=== PATIENT | female | born 1995 | race Caucasian/White ===

== ENCOUNTER 2017-08-24 22:06 | Emergency (ER) | payer MEDICAID, SELFPAY ==
[2017-08-24 22:07] VITALS: BP 131/85; PULSE 65; PULSE 80; RESP 16; TEMP 36.7; O2SAT 97; O2SAT 98; BMI 24.3
--- NOTE | 2017-08-24 22:37 | ED.DCSUM_ITS ---
- ER Visit Summary Date of Service: 08/24/17 Chief Complaint: Abdominal cramps History of Present Illness: The patient is a 22 F with abdominal cramps that started about 20 minutes prior to arrival. These were in her lower abdomen and radiated through to the back. By the time I saw her, they have almost resolved. She said she never had these before. She is not sure what brought them on, but she is finishing her menstrual period and was passing some clots. She denies any discharge or lesions. Denies any trouble urinating or change in bowel movements. Denies fever or systemic symptoms. Patient told the nurse that she is having problems with constipation. Physical Examination: Patient is afebrile and vital signs are unremarkable. She is sitting comfortably and appears in no acute distress. Skin appears normal. Abdomen soft, nontender, nondistended. Back is nontender. No CVA tenderness. Test Results: Urinalysis and test pending Emergency Department Course and Treatment: Patient had a brief episode of severe cramping. Her exam is unremarkable. Her symptoms have resolved. This may be related to menstrual bleeding. I will check a urinalysis and test. No indication for imaging or further diagnostic studies at this time. Patient was treated with Motrin while awaiting results. Urinalysis and test unremarkable. Patient will be treated with Motrin and MiraLAX. Follow-up with primary care. Discharge. Treatment Plan: As above Disposition: Discharged Impression: 1. Abdominal cramps This note was generated with [employer] dictation software. It may contain incorrect words, spelling, and punctuation that were not noted in review of the chart prior to signing ED Disposition - Plan for ED Patient: Chief Complaint: Abd Pain Referrals: Care Physician,No Primary [Primary Care Provider] -
[2017-08-24] MEDS: Ibuprofen 600 MG Tablet PO (22:41)
[2017-08-24 22:58] LABS: Bacteria 0 SEEN /hpf (None Seen); Mucous, Urine 0 SEEN /hpf (<or=2+); Red Blood Cells-Urine 0 SEEN /hpf (0-5); White Blood Cells 0 SEEN /hpf (0-5)
[2017-08-24 23:01] LABS: Color, Urine Yellow (Yellow); Glucose, Dipstick Normal (Normal); Ketone-Dipstick Negative (Negative); Leukocyte Esterase-Dipstick Negative /ul (Negative); Nitrite-Dipstick Negative (Negative); Occult Blood-Urine Negative /ul (Negative); Protein-Dipstick Negative (Negative); Specific Gravity, Urine 1.015 (1.002-1.030); Urine Bilirubin Dipstick Negative (Negative); Urine Clarity Sl. Cloudy (Clear); Urine Urobilinogen Normal (Normal); Urine pH 6.5 (5.0 - 8.0)
[2017-08-24 23:04] LABS: Internal QC Validated? YES +Cl - CLEAR BKGD; Pregnancy, Urine Negative Negative
[2017-08-24 23:13] LABS: Squamous Epithelial Cells - UA 0-5 SEEN /hpf (5-10)
--- NOTE | 2017-08-24 23:23 | ED.DEP ---
ED Disposition - Plan for ED Patient: Chief Complaint: Abd Pain Instructions: ED Abdominal Pain Unkn Cause Prescriptions: Polyethylene Glycol 3350 [Miralax] 17 gm PO DAILY 30 Days #30 packet Ibuprofen [Motrin] 800 mg PO TID #20 tab Referrals: Roni Carmona DO [NON-STAFF] -
[2017-08-24 23:35] VITALS: PULSE 71; RESP 16; O2SAT 98
== END 2017-08-24 23:36 | disposition home or self-care (01) ==
LOC: ED 22:58
PROVIDERS: Emergency Provider Emergency Medicine
DX: R10.30 Lower abdominal pain, unspecified (principal); Z72.0 Tobacco use
CPT/HCPCS: 81001; 81025; 99282; J7030

== ENCOUNTER 2017-12-23 18:03 | Observation (INO) | payer MEDICAID, SELFPAY ==
[2017-12-23 18:04] VITALS: BP 112/64; PULSE 72; RESP 17; TEMP 36.6; O2SAT 100; BMI 22.3
--- NOTE | 2017-12-23 18:47 | ED.VISSUMM ---
- ER Visit Summary Date of Service: 12/23/17 Chief Complaint: [] Intermittent upper abdominal pain since morning history of same History of Present Illness: The patient is a 22 F [] past history of complains of intermittent upper abdominal pain that she has had since this morning is intermittent causes cramps resolve spontaneously she has been able to eat and drink normal bowel bladder habits denies . She has had these spells in the past she has been told it possibly is her gallbladder but she has not followed up, she denies any fever cough alcohol use no tainted foods no antibiotics no exposures Physical Examination: [] Counseling the bed she is interacting and laughing with boyfriend in no distress HEENT exams unremarkable the neck is supple the lungs are clear the heart tones are normal abdomen soft there is no tenderness rebound guarding organomegaly she indicates the pain is in the by subcostal regions right and left there is no pain below her abdomen in fact I palpate her abdomen right now there is no pain of any kind but that is the location of the pain when it occurs the backs unremarkable upper lower extremities unremarkable neurologic she is awake moving all 4 skin is unremarkable extremities unremarkable she denies Patient's lab returned with elevated lipase in 1899 slight elevation of liver enzymes white count 14,000 explained her the concept of cholangitis pancreatitis potential lethal nature of these condition she indicated she understood she was able to verbally read back to me my concerns and also the diagnoses but stated she had issues with childcare and she could not stay in the emergency department a longer and she wanted to go home to take care of her children she agreed to return if symptoms change or intensified and/or follow-up with her physicians on Monday she is awake alert clearly cope coherent and competent to make this decision boyfriend was in the room and stated it was her decision to make I then went back again counseled her about all the above and she agreed to do the ultrasound but did not wish to have the IV restarted this point time The preliminary reading on the ultrasound shows multiple small gallstones, bile duct within normal range no cholecystic fluid or signs of acute cholecystitis, no Crystal sign on ultrasound Again reestablish IV start IV antibiotics I spoke with the hospitalist discussed case them in detail given all the above they will admit the patient medically and consult surgery and pursue clinical management as warranted as above discussed with the patient explained the above to her she understands Test Results: [] Please note the spouse also noted and has a history of prior Percocet abuse and she has been intermittently using Suboxone for that condition Emergency Department Course and Treatment: [] Treatment Plan: [] Disposition: [] admit stable pending hospitalist evaluation Impression: [] Abdominal pain, pancreatitis, gallstones, possible gallstone pancreatitis 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 It may contain incorrect words, spelling, and punctuation that were not noted in review of the chart prior to signing ED Disposition - Plan for ED Patient: Chief Complaint: Abd Pain Referrals: Care Physician,No Primary [Primary Care Provider] -
[2017-12-23 18:55] LABS: Mucous, Urine 0 SEEN /hpf (<or=2+)
[2017-12-23] MEDS: 0.9% Normal Saline 1,000 ML 1000 ML IV (19:05)
[2017-12-23 19:30] LABS: Internal QC Validated? YES +Cl - CLEAR BKGD
[2017-12-23 19:31] LABS: Color, Urine Yellow (Yellow); Glucose, Dipstick Normal (Normal); Ketone-Dipstick Negative (Negative); Leukocyte Esterase-Dipstick Negative /ul (Negative); Nitrite-Dipstick Negative (Negative); Occult Blood-Urine Negative /ul (Negative); Protein-Dipstick Negative (Negative); Urine Bilirubin Dipstick Negative (Negative); Urine Clarity Sl. Cloudy (Clear); Urine Urobilinogen Normal (Normal); Urine pH 6.5 (5.0 - 8.0)
[2017-12-23 19:34] LABS: Absolute Lymphocyte Count 1.58 X10^3/ul (0.83-4.51); Absolute Neutrophil Count 11.5 X10^3/uL (2.0-7.7); Basophil# 0.02 X10^3/uL; Basophil% 0.1 % (0-1); Eosinophil# 0.18 X10^3/uL; Eosinophils% 1.3 % (0-5); Hematocrit 36.8 % (37-47); Hemoglobin 12.6 g/dl (12.0-15.0); Lymphocyte # 1.58 X10^3/ul (4.0); Mean Corp Hgb Conc 34.2 g/gl (32-36); Mean Corpuscular Hgb 28.8 pg (27.0-32.0); Mean Corpuscular Volume 84.2 fL (81-99); Mean Platelet Vol. 10.2 fl (6.2-12.0); Monocyte# 1.04 X10^3/uL; Monocyte% 7.3 % (0-10); Neutrophil % 80.2 % (47-70); Platelet Count 287 K/mm3 (150-450); RBC Distribution Width CV 13.7 % (11.6-14.6); RBC Distribution Width SD 42.1 fl (35.1-43.9); Red Blood Count 4.37 M/mm3 (4.2-5.4); White Blood Count 14.3 K/mm3 (4.4-11.0)
[2017-12-23 19:36] LABS: POSITIVE COUNT NO; POSITIVE DIFFERENTIAL NO; POSITIVE MORPHOLOGY NO
[2017-12-23 19:37] LABS: Pregnancy, Urine Negative Negative
[2017-12-23 19:42] LABS: Bacteria RARE /hpf (None Seen); Squamous Epithelial Cells - UA 0-5 SEEN /hpf (5-10); White Blood Cells 0-5 SEEN /hpf (0-5)
[2017-12-23 19:44] LABS: Red Blood Cells-Urine 0-5 SEEN /hpf (0-5)
[2017-12-23 19:48] LABS: AST(SGOT) 155 U/L (15-37); Alanine Aminotransfer ALT/SGPT 134 U/L (13-56); Alkaline Phosphatase 153 U/L (45-117); Anion Gap 7 (5-15); BUN 9 mg/dL (7-18); BUN/Creat Ratio 15.7 RATIO (10-20); Bilirubin, Direct 0.47 mg/dL (0.00-0.30); Chloride 108 mmol/L (98-107); Creatinine, Serum 0.57 mg/dL (0.55-1.02); EST Glomerular Filtration Rate 137 mL/min (>60); Est Glom Filt Rate - Afr Amer 165 mL/min (>60); Estimated Creatinine Clearance 125.89 ml/min; Globulin 3.4 g/dL (2.2-4.2); Glucose 103 mg/dL (74-106); Lipase 1926 U/L (73-393); Potassium 3.4 mmol/L (3.5-5.1); Protein, Total 7.4 g/dL (6.4-8.2); Sodium Level 141 mmol/L (136-145)
--- NOTE | 2017-12-23 20:24 | US_ITS ---
STUDY: ABDOMINAL ULTRASOUND - RIGHT UPPER QUADRANT REASON FOR VISIT: Female, 22 years old. Mid abdominal pain. TECHNIQUE: Ultrasound evaluation of the right upper quadrant was performed with real-time and static crook-scale imaging. TECHNICAL QUALITY: Adequate. COMPARISON: None. FINDINGS: Liver: The liver measures 15.1 cm. There is normal echogenicity of the liver. The bile ducts are within normal limits. There is hepatic color flow. The direction of portal flow is hepatopetal. There is no demonstrated mass lesion. Gallbladder: Normal distended gallbladder. The gallbladder wall measures 3.1 mm. There is a negative sonographic Crystal's sign. There is no pericholecystic fluid. There are multiple small echogenic shadowing gallstones. A small suspected polyp. Common Bile Duct (C.B.D.): The common bile duct measures 4.8 mm. Pancreas: Normal size of the head, body and tail of the pancreas. Echogenic suggesting fatty atrophy. There is no demonstrated pancreatic mass or cyst. Right Kidney: Normal size of the right kidney. The right kidney measures 12.6 x 5.3 x 4.8 cm. Normal renal cortex. The right cortex measures 1.3 cm. There is no demonstrated renal mass or cyst. There is no right hydronephrosis. There is a 3 mm calculus of the superior pole calyx. US/Gallbladder IMPRESSION: 1. Cholelithiasis, borderline gallbladder wall thickening, but without pericholecystic fluid and with a negative sonographic Crystal sign. These features likely reflect chronic cholecystitis rather than acute but this requires further clinical correlation. 2. Nonobstructing calyceal calculus of the right kidney. Electronically Signed: Rod Mcelroy, at 23:28 EDT Tel , Service support ,
[2017-12-23] MEDS: Ondansetron ODT 4 MG Tablet PO (21:07)
[2017-12-23] MEDS: Ceftriaxone 1 GM/50 ML BAG IV (22:58)
[2017-12-23 23:00] VITALS: BP 122/79; PULSE 75; RESP 18; O2SAT 100
[2017-12-23 23:24] VITALS: BP 122/79; RESP 16; O2SAT 99
--- NOTE | 2017-12-23 23:27 | HP.PCM_ITS ---
Problem List (1) Drug abuse Status: Acute (2) Pancreatitis Status: Acute History of Present Illness Date of Admission: 12/23/17 Chief Complaint: Pancreatitis The patient is a 22 year old female w/ h/o gallstone and pain med abuse admitted for pancreatitis. She had intermittent upper abdominal pain that radiated to the back this morning. Pain was severe. Pain spontaneously resolved. However as the day went on, she noted pain did not improve but gotten progressively worse. Nothing improved or worsened the pain. Pain was not associated with food. Pain was not associated with any other symptoms. She developed nausea but no vomiting. She had similar pain before but it was years ago. Past Medical History Allergies No Known Allergies Allergy (Verified 12/23/17 18:04) Home Medications: Ambulatory Orders Medication Instructions Recorded Chrom Steven/Brindal Dsouza [Garcinia 1 each PO BID 12/23/17 Cambogia Tablet] Lives: With Family Smoking Status: Current every day smoker Alcohol: None Drugs: None - *Family History Maternal History Items: No pertinent history Review of Systems Constitutional: Denies: Chills, Fever, Weight Change HEENT: Denies: Head Aches, Sinus Congestion, Sinus Drainage Cardiovascular: Denies: Chest Pain, Palpitations Respiratory: Denies: Cough, Sputum production Gastrointestinal: Reports: Abdominal Pain, Nausea. Denies: Vomiting Genitourinary: Denies: Dysuria Musculoskeletal: Denies: Joint Pain, Joint Tenderness Skin: Denies: Rash, Wounds Neurological: Denies: Numbness, Tingling, Focal weakness Psychiatric: Denies: Anxiety, Depression, Homicidal Ideations, Suicidal Ideations Hematologic/ Lymphatic: Denies: Easy Bruising, Easy Bleeding VTE Information - Inpt Only VTE Present on Admission: No VTE Mechan Device Prophylaxis: SCD's VTE Pharm Prophylaxis ordered?: Yes Patient Problems: Active and Suspected Problems Drug abuse (Acute) Pancreatitis (Acute) - Physical Exam General: Alert, Oriented x3, Cooperative HEENT: Atraumatic, PERRLA, EOMI, Normocephalic Neck: Supple, No JVD, Negative Carotid Bruits Lungs: Clear to auscultation, Normal air movement Cardiovascular: Regular rate, No murmurs Abdomen: Bowel Sounds Present, Soft, Non Tender Extremities: No edema, Capillary Refill Less than 3 Seconds Skin: No rashes, No breakdown Musculoskeletal: No Tenderness to Palpation of Joints or Extremities Neurological: Cranial nerves II-XII grossly intact Psych/Mental Status: Normal Affect, Appropriate Vital Signs Temp Pulse Resp BP Pulse Ox 97.9 F 75 16 122/79 H 99 12/23/17 18:04 12/23/17 23:00 12/23/17 23:24 12/23/17 23:24 12/23/17 23:24 Oxygen Delivery Method Room Air Weight: 57.2 kg Body Mass Index (BMI) 22.3 Laboratory Tests Past 24 Hrs 12/23/17 12/23/17 12/23/17 18:44 18:44 19:05 WBC 14.3 H RBC 4.37 Hgb 12.6 Hct 36.8 L MCV 84.2 MCH 28.8 MCHC 34.2 RDW 13.7 RDW Differential 42.1 Plt Count 287 MPV 10.2 Immature Gran % (Auto) 0.100 Neut % (Auto) 80.2 H Lymph % (Auto) 11.0 L [place] % (Auto) 7.3 Eos % (Auto) 1.3 Baso % (Auto) 0.1 Absolute Neuts (auto) 11.5 H Absolute Lymphs (auto) 1.58 Total Counted Not Reportable Sodium Potassium Chloride Carbon Dioxide Anion Gap BUN Creatinine Estim Creat Clear Calc Est GFR (MDRD) Af Amer Est GFR (MDRD) Non-Af BUN/Creatinine Ratio Glucose Calcium Total Bilirubin Direct Bilirubin AST ALT Alkaline Phosphatase Total Protein Albumin Globulin Lipase Urine Color Yellow Urine Clarity Sl. Cloudy Urine pH 6.5 Ur Specific Frannie 1.010 Urine Protein Negative Urine Glucose (UA) Normal Urine Ketones Negative Urine Occult Blood Negative Urine Nitrite Negative Urine Bilirubin Negative Urine Urobilinogen Normal Ur Leukocyte Esterase Negative Urine RBC 0-5 SEEN Urine WBC 0-5 SEEN Ur Squamous Epith Cells 0-5 SEEN Urine Bacteria RARE Urine Mucus 0 SEEN Urine Test Negative 12/23/17 19:05 WBC RBC Hgb Hct MCV MCH MCHC RDW RDW Differential Plt Count MPV Immature Gran % (Auto) Neut % (Auto) Lymph % (Auto) [place] % (Auto) Eos % (Auto) Baso % (Auto) Absolute Neuts (auto) Absolute Lymphs (auto) Total Counted Sodium 141 Potassium 3.4 L Chloride 108 H Carbon Dioxide 26.0 Anion Gap 7 BUN 9 Creatinine 0.57 Estim Creat Clear Calc 125.89 Est GFR (MDRD) Af Amer 165 Est GFR (MDRD) Non-Af 137 BUN/Creatinine Ratio 15.7 Glucose 103 Calcium 9.0 Total Bilirubin 0.70 Direct Bilirubin 0.47 H AST 155 H ALT 134 H Alkaline Phosphatase 153 H Total Protein 7.4 Albumin 4.0 Globulin 3.4 Lipase 1926 H Urine Color Urine Clarity Urine pH Ur Specific Frannie Urine Protein Urine Glucose (UA) Urine Ketones Urine Occult Blood Urine Nitrite Urine Bilirubin Urine Urobilinogen Ur Leukocyte Esterase Urine RBC Urine WBC Ur Squamous Epith Cells Urine Bacteria Urine Mucus Urine Test Assessment/Plan All Active Problems Drug abuse (Acute) Pancreatitis (Acute) premature rupture of membranes (PPROM) delivered, current hospitalization (Acute) 22 year old female w/ h/o gallstone and pain med abuse admitted for pancreatitis. 1) Pancreatitis: Lipase 1900. Abdominal US disclosed multiple small gallstones, bile duct within normal range no cholecystic fluid or signs of acute cholecystitis, no Crystal sign on ultrasound. IVF hydration. Pain control. NPO. Consulted surgery. 2) Transaminitis: Will get hepatitis panel. Followed level. If no improvement, will workup autoimmune. Monitor. 3) Drug abuse: H/o narcotics abuse. Education. May need [facility] consult once pancreatitis resolved. Monitor.
[2017-12-23 23:51] VITALS: BMI 22.7; BMI 22.8
[2017-12-24 00:05] VITALS: BP 117/70; PULSE 70; RESP 20; TEMP 36.6; O2SAT 99
--- NOTE | 2017-12-24 01:17 | NURSING ---
1L BAG OF NS HUNG IN ED. CONTINUES TO INFUSE @ 200ML/HR.
[2017-12-24] MEDS: 0.9% Normal Saline 1,000 ML 200 ML IV (04:30)
[2017-12-24 06:20] LABS: Absolute Neutrophil Count 4.2 X10^3/uL (2.0-7.7); Basophil# 0.02 X10^3/uL; Basophil% 0.3 % (0-1); Eosinophil# 0.38 X10^3/uL; Eosinophils% 5.4 % (0-5); Hematocrit 32.3 % (37-47); Hemoglobin 10.8 g/dl (12.0-15.0); Lymphocyte % 28.2 % (19-41); Mean Corp Hgb Conc 33.4 g/gl (32-36); Mean Corpuscular Hgb 28.5 pg (27.0-32.0); Mean Corpuscular Volume 85.2 fL (81-99); Mean Platelet Vol. 9.7 fl (6.2-12.0); Monocyte# 0.52 X10^3/uL; Monocyte% 7.3 % (0-10); Neutrophil # 4.18 X10^3/uL (2.7-7.7); Neutrophil % 58.8 % (47-70); Platelet Count 252 K/mm3 (150-450); RBC Distribution Width CV 13.9 % (11.6-14.6); Red Blood Count 3.79 M/mm3 (4.2-5.4); White Blood Count 7.1 K/mm3 (4.4-11.0)
[2017-12-24 06:24] LABS: POSITIVE COUNT NO; POSITIVE DIFFERENTIAL NO; POSITIVE MORPHOLOGY NO
[2017-12-24 06:28] VITALS: BP 141/89; PULSE 59; RESP 18; TEMP 37.2; O2SAT 98
[2017-12-24 06:40] LABS: AST(SGOT) 169 U/L (15-37); Alanine Aminotransfer ALT/SGPT 189 U/L (13-56); Albumin, Serum 2.9 g/dL (3.2-5.0); Alkaline Phosphatase 149 U/L (45-117); Anion Gap 7 (5-15); BUN 6 mg/dL (7-18); BUN/Creat Ratio 13.8 RATIO (10-20); Bilirubin, Direct 0.13 mg/dL (0.00-0.30); Calcium,Total 8.1 mg/dL (8.5-10.1); Chloride 112 mmol/L (98-107); Creatinine, Serum 0.43 mg/dL (0.55-1.02); EST Glomerular Filtration Rate 188 mL/min (>60); Est Glom Filt Rate - Afr Amer 228 mL/min (>60); Estimated Creatinine Clearance 166.88 ml/min; Globulin 2.9 g/dL (2.2-4.2); Glucose 93 mg/dL (74-106); Lipase 94 U/L (73-393); Potassium 3.8 mmol/L (3.5-5.1); Protein, Total 5.8 g/dL (6.4-8.2); Sodium Level 144 mmol/L (136-145)
[2017-12-24] MEDS: Ondansetron ODT 4 MG Tablet PO (06:46)
[2017-12-24 08:40] VITALS: BP 117/70; PULSE 85; RESP 16; TEMP 37; O2SAT 99
[2017-12-24 08:53] LABS: Amphetamine Urine VISTA NEGATIVE (<1000 ng/mL); Barbiturate Urine VISTA NEGATIVE (< 200 ng/mL); Benzodiazepine Urine VISTA NEGATIVE (< 200 ng/mL); Cocaine Urine VISTA NEGATIVE (< 300 ng/mL); Ecstacy Urine VISTA NEGATIVE (< 500 ng/mL); Methadone Urine VISTA NEGATIVE (< 300 ng/mL); PCP Urine VISTA NEGATIVE (< 25 ng/mL); THC Urine VISTA POSITIVE (< 50 ng/mL); Vista UDS pH Range 6
[2017-12-24] MEDS: 0.9% Normal Saline 1,000 ML 100 ML IV (09:35)
--- NOTE | 2017-12-24 10:26 | CON.PCM_ITS ---
Reason for Consult Date of Consultation: 12/24/17 History of Present Illness: The patient is a 22 year old F who is admitted with biliary pancreatitis. The patient noted upper abdominal pain in the right and left upper quadrants, radiating straight through to her back. She presented to [facility] emergency department. She was noted to have an elevated lipase and liver transaminases. Right upper quadrant ultrasound demonstrated borderline gallbladder wall thickening and many cholelithiasis. The patient was admitted. Follow-up laboratory studies this morning demonstrated normalization of her lipase. She is no longer having any pain. She is hungry and wishes to resume a diet and would like to be discharged. Past Medical History Allergies No Known Allergies Allergy (Verified 12/23/17 18:04) Home Medications: Ambulatory Orders Medication Instructions Recorded Chrom Steven/Brindal Dsouza [Garcinia 1 each PO BID 12/23/17 Cambogia Tablet] Surgical History: - - section Lives: With Family Smoking Status: Current every day smoker Alcohol: None Drugs: None - *Family History Maternal History Items: No pertinent history Review of Systems Constitutional: Denies: Chills, Fever, Weight Change HEENT: Denies: Head Aches, Sinus Congestion, Sinus Drainage Cardiovascular: Denies: Chest Pain, Palpitations Respiratory: Denies: Cough, Shortness of breath at rest, Sputum production Gastrointestinal: Denies: Abdominal Pain, Nausea, Vomiting Genitourinary: Denies: Dysuria Musculoskeletal: Denies: Joint Pain, Joint Tenderness Skin: Denies: Rash, Wounds Neurological: Denies: Numbness, Tingling, Focal weakness Psychiatric: Denies: Anxiety, Depression, Homicidal Ideations, Suicidal Ideations Hematologic/ Lymphatic: Denies: Easy Bruising, Easy Bleeding Patient Problems: Active and Suspected Problems Drug abuse (Acute) Pancreatitis (Acute) - Physical Exam General: Alert, Oriented x3, Cooperative HEENT: Atraumatic, PERRLA, EOMI, Normocephalic Neck: Supple, No JVD, Negative Carotid Bruits Lungs: Clear to auscultation, Normal air movement Cardiovascular: Regular rate, No murmurs Abdomen: Bowel Sounds Present, Soft, Non Tender Extremities: No edema, Capillary Refill Less than 3 Seconds Skin: No rashes, No breakdown Musculoskeletal: No Tenderness to Palpation of Joints or Extremities Neurological: Cranial nerves II-XII grossly intact Psych/Mental Status: Normal Affect, Appropriate Vital Signs Temp Pulse Resp BP Pulse Ox 98.9 F 59 L 18 141/89 H 98 12/24/17 06:28 12/24/17 06:28 12/24/17 06:28 12/24/17 06:28 12/24/17 06:28 Oxygen Delivery Method Room Air Weight: 58.3 kg Body Mass Index (BMI) 22.7 Intake and Output for Last 24 Hours 12/22/17 12/23/17 12/24/17 23:59 23:59 23:59 Intake Total 1446 / 1446 Balance 1446 / 1446 Laboratory Tests Past 24 Hrs 12/24/17 12/24/17 12/24/17 05:50 05:50 05:50 WBC 7.1 RBC 3.79 L Hgb 10.8 L Hct 32.3 L MCV 85.2 MCH 28.5 MCHC 33.4 RDW 13.9 RDW Differential 43.0 Plt Count 252 MPV 9.7 Immature Gran % (Auto) 0.000 Neut % (Auto) 58.8 Lymph % (Auto) 28.2 Elbert % (Auto) 7.3 Eos % (Auto) 5.4 H Baso % (Auto) 0.3 Absolute Neuts (auto) 4.2 Absolute Lymphs (auto) 2.00 Total Counted Not Reportable Sodium 144 Potassium 3.8 Chloride 112 H Carbon Dioxide 25.0 Anion Gap 7 BUN 6 L Creatinine 0.43 L Estim Creat Clear Calc 166.88 Est GFR (MDRD) Af Amer 228 Est GFR (MDRD) Non-Af 188 BUN/Creatinine Ratio 13.8 Glucose 93 Calcium 8.1 L Total Bilirubin 0.50 Direct Bilirubin 0.13 AST 169 H ALT 189 H Alkaline Phosphatase 149 H Total Protein 5.8 L Albumin 2.9 L Globulin 2.9 Lipase 94 Urine Amphetamine Cancelled U Amphetamines Confirm Pending Urine Cocaine Confirm Pending U Cocaine Metab Screen Pending U Benzoylecgonine GC/MS Pending Urine Ethyl Alcohol Pending Hepatitis A IgM Ab Pending Hep Bs Antigen Pending Hep B Core IgM Ab Pending Hepatitis C Ab (EIA) Pending Assessment/Plan All Active Problems Drug abuse (Acute) Pancreatitis (Acute) premature rupture of membranes (PPROM) delivered, current hospitalization (Acute) cholelithiasis, biliary pancreatitis-resolved I'm comfortable with her being discharged home. She is now pain-free. I will have my contact this contact her and we'll plan to schedule an outpatient. Laparoscopic cholecystectomy intraoperative cholangiogram. I discussed with the patient the risks, benefits, possible complications and alternatives. The patient is comfortable planning for cholecystectomy
--- NOTE | 2017-12-24 10:26 | PCM.DC ---
- Discharge Diagnoses Current Active Problems: Current Active and Chronic Problems Drug abuse (Acute) Pancreatitis (Acute) Reason(s) for Visit for Discharge Instructions: Abdominal pain You will use the following diet at home:: Regular Your food should be the consistency of: Regular Your liquids should be the consistency of: Regular/Thin Discharge Activity: Return to Normal Activity Additional Instructions: Keep yourself hydrated. You are advised to quit smoking. Follow-up on hepatitis panel and repeat blood work with your primary care doctor. A list of primary care providers have been given to you. Follow-up with the general surgeon, Dr. Velasco within 2 weeks to schedule for a possible laparoscopic cholecystectomy. Allergies/Adverse Reactions: Allergies No Known Allergies Allergy (Verified 12/23/17 18:04) Medications to take at Discharge Chrom Steven/Brindal Dsouza [Garcinia Cambogia Tablet] 1 each PO BID 12/23/17 Orders to be completed after discharge: Comprehensive Metabolic Profil Time Frame: 1 Week, Location: Laboratory Primary Care Physician: Care Physician,No Primary [Primary Care Provider] - Please follow up with your Primary Care Physician in: within 2 weeks for repeat blood work Please Follow Up With: Rod Velasco MD When: as scheduled Proposed Discharge Date: 12/24/17
--- NOTE | 2017-12-24 10:31 | DS.PCM_ITS ---
Discharge Date and Diagnosis Date of Admission: 12/23/17 Date of Discharge: 12/24/17 - Primary Discharge Diagnosis Active and Suspected Problems Drug abuse (Acute) Pancreatitis (Acute) Acute biliary pancreatitis Acute transaminitis Cholelithiasis - Secondary Discharge Diagnosis Chronic pain medications, on suboxone. Hospital Course and Treatment Imaging Results: Clinical Impression(s) from Imaging Studies Gallbladder Ultrasound 12/23/17 20:24 IMPRESSION: 1. Cholelithiasis, borderline gallbladder wall thickening, but without pericholecystic fluid and with a negative sonographic Crystal sign. These features likely reflect chronic cholecystitis rather than acute but this requires further clinical correlation. 2. Nonobstructing calyceal calculus of the right kidney. Electronically Signed: Rod Lilibeth, at 23:28 EDT Tel , Service support , None Operations: None, - - Low transverse section Procedures: None Summary of Care Provided: The patient is a 22 year old F with PMHx of pain medication abuse, on suboxone admitted with upper abdominal pain, associated with nausea but no vomiting. Admitting labs were positive for elevated WBC count which resolved on repeat the next morning. Patient had hypokalemia that was replaced and was normal the next day. Admitting blood work was significant for elevated transaminases which was slightly elevated the next day. No jaundice on exam or RUQ tenderness or crystal' s sign. Admitting lipase was 1926, repeat was 94. Patient was asymptomatic the next day and was hungry. She tolerated advancement in a diet. General surgery, Dr. Velasco, was consulted and will follow up with patient in the outpatient. She would need to repeat her blood work and a list of primary care providers with given to her. Discharge Diet: Low fat/ Low Cholesterol, 2000 mg Sodium Diet Discharge Activity: Return to Normal Activity Home Medications: Medications to take at Discharge Chrom Steven/Brindal Dsouza [Garcinia Cambogia Tablet] 1 each PO BID 12/23/17 Primary Care Physician: Care Physician,No Primary [Primary Care Provider] - Please follow up with your Primary Care Physician in: within 2 weeks for repeat blood work Please Follow Up With: Rod Velasco MD When: as scheduled Disposition: Home Minutes spent on discharge:: 40 Patient Condition:: Stable Medical Necessity - Tobacco Use Smoking Status: Current every day smoker Meaningful Use Info Meaningful Use Diagnoses (Choose all that apply): None applicable Code Visit Inpatient E&M: 63610 Disch Hosp
== END 2017-12-24 11:24 | disposition home or self-care (01) ==
LOC: ED 19:03 → MS3 12-24 07:10
PROVIDERS: Admitting Provider Internal Medicine; Emergency Provider Emergency Medicine; Visit Provider Internal Medicine
DX: K85.10 Biliary acute pancreatitis without necrosis or infection (principal); K80.20 Calculus of gallbladder without cholecystitis without obstruction; F11.10 Opioid abuse, uncomplicated; E87.6 Hypokalemia; F17.200 Nicotine dependence, unspecified, uncomplicated
CPT/HCPCS: 36415; 76705; 80048; 80074; 80076; 80307; 81001; 81025; 83690; 85025; 96361; 96365; 97802; 99218; 99283; J7030; G0378

== ENCOUNTER 2018-01-17 21:01 | Observation (INO) | payer MEDICAID, SELFPAY ==
[2018-01-17 21:02] VITALS: BP 151/71; PULSE 87; RESP 20; TEMP 36.6; O2SAT 99; BMI 20.9
--- NOTE | 2018-01-17 21:36 | US_ITS ---
STUDY: ABDOMINAL ULTRASOUND - RIGHT UPPER QUADRANT REASON FOR VISIT: Female, 22 years old. Abdominal pain. TECHNIQUE: Ultrasound evaluation of the right upper quadrant was performed with real-time and static crook-scale imaging. TECHNICAL QUALITY: Adequate. COMPARISON: 12/23/2017. FINDINGS: Liver: The liver measures 19.4 cm. There is normal echogenicity of the liver. The bile ducts are within normal limits. There is hepatic color flow. The direction of portal flow is hepatopetal. There is no demonstrated mass lesion. Gallbladder: Normal distended gallbladder. The gallbladder wall measures 2 mm. There is a positive sonographic Crystal's sign. There is no pericholecystic fluid. There are multiple echogenic structures within the gallbladder, consistent with multiple gallstones. There is a small echogenic focus in the anterior wall of the gallbladder with ringdown artifacts which could be due to adenomyomatosis or may represent small polyp. Common Bile Duct (C.B.D.): The common bile duct measures 6 mm. Pancreas: Normal size of the head, body and tail of the pancreas. There is normal echogenicity of the pancreas. There is no demonstrated pancreatic mass or cyst. Right Kidney: Normal size of the right kidney. The right kidney measures 12.1 x 5.4 x 4.3 cm. Normal renal cortex. The right cortex measures 1 cm. There is no demonstrated renal mass or cyst. There is no right hydronephrosis. US/Gallbladder IMPRESSION: Hepatomegaly. Multiple gallstones. Questionable small polyp in the gallbladder or adenomyomatosis. Electronically Signed: Silverio Feng MD at 23:05 EDT Tel , Service support ,
[2018-01-17 21:46] LABS: Absolute Lymphocyte Count 1.61 X10^3/ul (0.83-4.51); Absolute Neutrophil Count 4.7 X10^3/uL (2.0-7.7); Basophil# 0.02 X10^3/uL; Basophil% 0.3 % (0-1); Eosinophil# 0.28 X10^3/uL; Hematocrit 40.6 % (37-47); Hemoglobin 13.7 g/dl (12.0-15.0); Lymphocyte # 1.61 X10^3/ul (4.0); Lymphocyte % 23.1 % (19-41); Mean Corp Hgb Conc 33.7 g/gl (32-36); Mean Corpuscular Volume 85.8 fL (81-99); Mean Platelet Vol. 10.2 fl (6.2-12.0); Monocyte# 0.38 X10^3/uL; Monocyte% 5.5 % (0-10); Neutrophil # 4.66 X10^3/uL (2.7-7.7); Platelet Count 229 K/mm3 (150-450); RBC Distribution Width CV 14.2 % (11.6-14.6); RBC Distribution Width SD 44.5 fl (35.1-43.9); Red Blood Count 4.73 M/mm3 (4.2-5.4)
[2018-01-17 21:47] LABS: POSITIVE COUNT NO; POSITIVE DIFFERENTIAL NO; POSITIVE MORPHOLOGY NO
[2018-01-17] MEDS: Morphine 4 MG/ML Syringe IV (21:55)
[2018-01-17] MEDS: Ondansetron 4 MG/2 ML Vial IV (21:55)
[2018-01-17] MEDS: 0.9% Normal Saline 1,000 ML 1000 ML IV (21:55)
[2018-01-17 21:59] VITALS: BP 123/82; PULSE 78; RESP 24; O2SAT 100
[2018-01-17 22:02] LABS: AST(SGOT) 806 U/L (15-37); Alanine Aminotransfer ALT/SGPT 786 U/L (13-56); Alkaline Phosphatase 280 U/L (45-117); Anion Gap 6 (5-15); BUN 10 mg/dL (7-18); BUN/Creat Ratio 13.2 RATIO (10-20); Bilirubin, Direct 0.85 mg/dL (0.00-0.30); Calcium,Total 8.9 mg/dL (8.5-10.1); Chloride 106 mmol/L (98-107); Creatinine, Serum 0.76 mg/dL (0.55-1.02); EST Glomerular Filtration Rate 99 mL/min (>60); Est Glom Filt Rate - Afr Amer 120 mL/min (>60); Estimated Creatinine Clearance 94.42 ml/min; Globulin 3.8 g/dL (2.2-4.2); Glucose 85 mg/dL (74-106); Lipase 331 U/L (73-393); Protein, Total 7.8 g/dL (6.4-8.2); Sodium Level 141 mmol/L (136-145)
[2018-01-17 22:44] LABS: Pregnancy, Serum, hCG Quali. NEGATIVE Negative (0-9 Nonpreg)
--- NOTE | 2018-01-17 22:54 | ED.VISSUMM ---
- ER Visit Summary Date of Service: 01/17/18 Chief Complaint: Abdominal pain History of Present Illness: The patient is a 22 F presenting with right upper quadrant abdominal pain. She states it worsened today. She ate [employer] this morning. She has a history of cholelithiasis. She was admitted December 23 for cholelithiasis with pancreatitis. She improved during her 1 day hospital admission and was discharged to schedule outpatient cholecystectomy. Outpatient cholecystectomy is scheduled for Monday. She states her pain returned yesterday. She went to [facility] and was evaluated and discharged. She has nausea with no vomiting. Denies fever. Physical Examination: Vitals are stable. Patient is afebrile. Alert no acute distress. HEENT exam is unremarkable. Neck is supple. Lungs are clear and equal bilaterally. Heart is regular rate and rhythm. Abdomen is soft right upper quadrant and epigastric tenderness, no rebound or guarding Extremities are unremarkable. Skin is warm and dry. No focal neurologic deficit. Remainder of exam is unremarkable. Emergency Department Course and Treatment: Patient given morphine, Zofran. CBC, chemistries unremarkable. Total bili 1.50, direct bili 0.85, alk phos 280, ALT 786, AST 806, lipase 331. HCG negative. Ultrasound of the gallbladder shows hepatomegaly. Multiple gallstones. Questionable small polyp in the gallbladder or adenomyomatosis. Discussed with Dr. Kirkland and patient will be admitted. She has no fever or white count and therefore antibiotics will be held at this time. Disposition: Admission Impression: Cholelithiasis, abdominal pain This note was generated with [employer] dictation software. It may contain incorrect words, spelling, and punctuation that were not noted in review of the chart prior to signing ED Disposition - Plan for ED Patient: Chief Complaint: Abd Pain Referrals: Ca Browning PA [Primary Care Provider] -
--- NOTE | 2018-01-17 22:58 | ED.DCSUM_ITS ---
- ER Visit Summary Date of Service: 01/17/18 Chief Complaint: Abdominal pain History of Present Illness: The patient is a 22 F presenting with right upper quadrant abdominal pain. She states it worsened today. She ate [employer] this morning. She has a history of cholelithiasis. She was admitted December 23 for cholelithiasis with pancreatitis. She improved during her 1 day hospital admission and was discharged to schedule outpatient cholecystectomy. Outpatient cholecystectomy is scheduled for Monday. She states her pain returned yesterday. She went to [facility] and was evaluated and discharged. She has nausea with no vomiting. Denies fever. Physical Examination: Vitals are stable. Patient is afebrile. Alert no acute distress. HEENT exam is unremarkable. Neck is supple. Lungs are clear and equal bilaterally. Heart is regular rate and rhythm. Abdomen is soft right upper quadrant and epigastric tenderness, no rebound or guarding Extremities are unremarkable. Skin is warm and dry. No focal neurologic deficit. Remainder of exam is unremarkable. Emergency Department Course and Treatment: Patient given morphine, Zofran. CBC , chemistries unremarkable. Total bili 1.50, direct bili 0.85, alk phos 280, ALT 786, AST 806, lipase 331. HCG negative. Ultrasound of the gallbladder shows hepatomegaly. Multiple gallstones. Questionable small polyp in the gallbladder or adenomyomatosis. Discussed with Dr. Kirkland and patient will be admitted. She has no fever or white count and therefore antibiotics will be held at this time. Disposition: Admission Impression: Cholelithiasis, abdominal pain This note was generated with [employer] dictation software. It may contain incorrect words, spelling, and punctuation that were not noted in review of the chart prior to signing ED Disposition - Plan for ED Patient: Chief Complaint: Abd Pain Referrals: Ca Browning PA [Primary Care Provider] -
[2018-01-18] VITALS (15 sets, daily range): BP systolic 96–137; BP diastolic 42–87; PULSE 56–94; RESP 12–20; TEMP 36.4–37.5; O2SAT 92–100; BMI 22.4
[2018-01-18] MEDS: Lactated Ringers 1,000 ML 75 ML IV ×3 (01:42→23:40)
[2018-01-18] MEDS: 0.9% NaCl Peripheral Flush Adult/Peds IV ×2 (01:42→15:28)
[2018-01-18] MEDS: proMETHazine 25 MG/ML Syringe IV (01:43)
--- NOTE | 2018-01-18 07:54 | PCM.HP.BLA ---
History and Physical Date of Admission: 01/18/18 Agatha Napier 1995 CHIEF COMPLAINT: cholelithiasis HPI: Agatha is a 22 year old female with a complaint of right upper quadrant pain. The patient has had symptoms of right upper quadrant pain for few weeks. The symptoms have increased, over the past 2 weeks. The pain does radiate to the back and shoulder. Food does aggravate her symptoms. US obtained last night confirms cholelithiasis. Patient found to have elevated LFTs - tbili 1.5, AST/ALT 806/786, alkphos - 280, lipase normal The patient was seen by the emergency room physician and admitted to hospital 12/23/17. She was found to have gallstone pancreatitis at the time. This was resolved. Patient is scheduled for laparoscopic cholecystectomy early next week by Dr. Velasco. Patient denies biliary obstructive signs/symptoms such as icterus, jaundice, etc. On this admission, patient found to have normal WBC. Admitted for protracted abdominal pain and elevated LFTs. PAST MEDICAL HISTORY No past medical history on file. PAST SURGICAL HISTORY DELIVERY ONLY 07/2017 MEDICATIONS: erythromycin ophthalmic ointment Use 1 application in the right eye three times daily. Disp: 1 Tube Rfl: 0 ALLERGIES: Patient has no known allergies. SOCIAL HISTORY Social History Marital status: Single Social History Main Topics Smoking status: Current Every Day Smoker Packs/day: 0.00 Years: 0.00 REVIEW OF SYSTEMS: The review of systems data was entered by the nurse and reviewed by me PHYSICAL EXAMINATION: General: The patient is 22 year old female, well nourished, well hydrated in no acute distress. The patient is oriented to time, place, and person. VITALS: Blood pressure 128/68, pulse 72, temperature 36.7 ?C (98 ?F), height 162.6 cm (5' 4), weight 53.8 kg (118 lb 9.6 oz). Body mass index is 20.36 kg/m?. HEENT: Normal cephalic, ataumatic, pupils are equally round, sclera are anicteric, mucous membranes are moist, oropharynx is clear. Neck has no masses, asymmetry or lymphadenopathy. Thyroid is unremarkable. Respiratory: Clear to auscultation and percussion. Normal respiratory excursion and pattern. Cardiac: Examination is regular rate and rhythm. Abdominal exam: Normoactive bowel sounds, Soft, tender in the right upper quadrant negative Crystal's sign, with no palpable masses. No hepatosplenomegaly. No palpable hernias. Rectal exam: exam deferred Extremities: no clubbing, cyanosis or edema. No adenopathy. IMPRESSION: Cholelithiasis, elevated LFT's PLAN: Plan is to perform a laparoscopic cholecystectomy with intraoperative cholangiogram. This will be done by Dr. Velasco. The plan is to perform the surgery in this admission. I have discussed the above with the patient. I have explained the procedure to the patient. I have counseled the patient as to the risks of the procedure, including but not limited to: infection, bleeding, injury to any blood vessels/nerves, scar tissue, injury to any intraabdominal organs, injury to kidney/ureters, injury to bowel/bladder, injury to the common bile duct/biliary tree, bile leakage, intraabdominal abscess/bleeding, hernias at incisional sites, wound infections, possible open procedure, complications of anesthesia, postoperative pneumonia/cardiac problems/blood clots etc. the patient understands. She wishes to proceed. I have answered all questions to the patients satisfaction and the patient has no further questions.
--- NOTE | 2018-01-18 08:08 | HP.PCM_ITS ---
History and Physical Date of Admission: 01/18/18 Agatha Napier 1995 CHIEF COMPLAINT: cholelithiasis HPI: Agatha is a 22 year old female with a complaint of right upper quadrant pain. The patient has had symptoms of right upper quadrant pain for few weeks. The symptoms have increased, over the past 2 weeks. The pain does radiate to the back and shoulder. Food does aggravate her symptoms. US obtained last night confirms cholelithiasis. Patient found to have elevated LFTs - tbili 1.5, AST/ALT 806/786, alkphos - 280 , lipase normal The patient was seen by the emergency room physician and admitted to hospital 12/23/17. She was found to have gallstone pancreatitis at the time. This was resolved. Patient is scheduled for laparoscopic cholecystectomy early next week by Dr. Velasco. Patient denies biliary obstructive signs/symptoms such as icterus, jaundice, etc. On this admission, patient found to have normal WBC. Admitted for protracted abdominal pain and elevated LFTs. PAST MEDICAL HISTORY No past medical history on file. PAST SURGICAL HISTORY DELIVERY ONLY 07/2017 MEDICATIONS: erythromycin ophthalmic ointment Use 1 application in the right eye three times daily. Disp: 1 Tube Rfl: 0 ALLERGIES: Patient has no known allergies. SOCIAL HISTORY Social History Marital status: Single Social History Main Topics Smoking status: Current Every Day Smoker Packs/day: 0.00 Years: 0.00 REVIEW OF SYSTEMS: The review of systems data was entered by the nurse and reviewed by me PHYSICAL EXAMINATION: General: The patient is 22 year old female, well nourished, well hydrated in no acute distress. The patient is oriented to time, place, and person. VITALS: Blood pressure 128/68, pulse 72, temperature 36.7 ?C (98 ?F), height 162.6 cm (5' 4), weight 53.8 kg (118 lb 9.6 oz). Body mass index is 20.36 kg/m ?. HEENT: Normal cephalic, ataumatic, pupils are equally round, sclera are anicteric, mucous membranes are moist, oropharynx is clear. Neck has no masses , asymmetry or lymphadenopathy. Thyroid is unremarkable. Respiratory: Clear to auscultation and percussion. Normal respiratory excursion and pattern. Cardiac: Examination is regular rate and rhythm. Abdominal exam: Normoactive bowel sounds, Soft, tender in the right upper quadrant negative Crystal's sign, with no palpable masses. No hepatosplenomegaly. No palpable hernias. Rectal exam: exam deferred Extremities: no clubbing, cyanosis or edema. No adenopathy. IMPRESSION: Cholelithiasis, elevated LFT's PLAN: Plan is to perform a laparoscopic cholecystectomy with intraoperative cholangiogram. This will be done by Dr. Velasco. The plan is to perform the surgery in this admission. I have discussed the above with the patient. I have explained the procedure to the patient. I have counseled the patient as to the risks of the procedure, including but not limited to: infection, bleeding, injury to any blood vessels/nerves, scar tissue, injury to any intraabdominal organs, injury to kidney/ureters, injury to bowel/bladder, injury to the common bile duct/biliary tree, bile leakage, intraabdominal abscess/bleeding, hernias at incisional sites, wound infections, possible open procedure, complications of anesthesia, postoperative pneumonia/cardiac problems /blood clots etc. the patient understands. She wishes to proceed. I have answered all questions to the patient?s satisfaction and the patient has no further questions.
--- NOTE | 2018-01-18 09:00 | NURSING ---
pt states that she just started her period- alexsander pads given.
--- NOTE | 2018-01-18 09:08 | EKG12_ITS ---
Test Reason : PRE-OP Blood Pressure : / mmHG Vent. Rate : 050 BPM Atrial Rate : 050 BPM P-R Int : 146 ms QRS Dur : 090 ms QT Int : 398 ms P-R-T Axes : 027 090 059 degrees QTc Int : 362 ms Sinus bradycardia Otherwise normal ECG Confirmed by АЛЕКСАНДР WOO, RAUL ([id number]), medical transcription editor TAVARES STEVENS ([id number]) on 01/25/2018 2:56:11 PM Referred By: SHONA Confirmed By:RAUL FOUNTAIN MD
--- NOTE | 2018-01-18 10:29 | RAD_ITS ---
STUDY: INTRAOPERATIVE CHOLANGIOGRAM. REASON FOR EXAM: Female, 22 years old. Laparoscopic cholecystectomy. FLUOROSCOPY TIME (if supplied): (0:54) minutes/seconds TECHNIQUE: An intraoperative quadrant was performed by the surgeon. Imaging was submitted. COMPARISON: None. FINDINGS: Mild dilatation of the visualized central intrahepatic biliary ducts and common bile duct. There is no flow into the duodenum. A calculus in the distal portion of the, that should be ruled out. RAD/Cholangiogram/ O R,Initial IMPRESSION: Dilated common bile duct. No flow into the duodenum. A retained calculus should be ruled out. Electronically Signed: Amor Cruz MD at 9:15 EDT Tel [phone], Service support ,
[2018-01-18] MEDS: Cefazolin 2 GM in 0.9% Normal Saline 100 ML IV (10:55)
[2018-01-18] MEDS: Bupivacaine Mpf 0.5% 30 ML VIAL (11:30)
--- NOTE | 2018-01-18 11:50 | RAD_ITS ---
STUDY: INTRAOPERATIVE CHOLANGIOGRAM. REASON FOR EXAM: Female, 22 years old. Laparoscopic cholecystectomy. FLUOROSCOPY TIME (if supplied): (54 seconds) minutes/seconds TECHNIQUE: Intraoperative cholangiography was performed by the surgeon. Imaging was submitted. COMPARISON: None. FINDINGS: There is evidence of mild dilatation of the intrahepatic biliary ducts and common bile duct. No focal contrast is seen within the duodenum. A calculus in the distal portion of the common bile duct should be ruled out. RAD/Cholangiogram O.R./Subsequent IMPRESSION: Mild dilatation of the intra and extra hepatic biliary ducts with no flow into the duodenum. Retained stone in the distal common bile duct should be ruled out. Electronically Signed: Amor Cruz MD at 14:33 EDT Tel [phone], Service support ,
--- NOTE | 2018-01-18 12:33 | OP.PCM_ITS ---
Report of Operation Date of Procedure: 01/18/18 Pre-Operative Diagnosis: biliary colic, cholelithiasis Post-Operative Diagnosis: biliary colic, cholelithiasis, small distal CBD stone , unable to flush Surgery/Procedure Performed:: laparoscopic cholecystectgomy alfa intraoperative choolangiogram Description of Surgical Findings:: as above medical office receptionist assistant: Clemente Curtis Type of Anesthesia:: General Anesthesiologist: Raúl Gutierrez - ASA2 Specimen's removed: gallbladder Estimated Blood Loss (mL): 25 Fluids Replaced: 800 Description of Procedure: The patient was brought to the operating suite. Sign in was performed verifying patient, site, position, SCIP antibiotic prophylaxis- gm of Ancef and DVT prophylaxis with SCDs. Following induction of general anesthetic. The patient?s abdomen was prepped and draped in the usual fashion. Timeout was performed verifying patient, site , position. Local anesthetic was injected below the umbilicus. Incision made and dissection carried down to the umbilical root fascia. 2 stay sutures were placed. Incision made in the fascia, the peritoneum entered under direct visualization. A 10 mm Brito trocar was inserted and secured with the stay sutures. Pneumoperitoneum to 15 mmHg was insufflated. Visual inspection revealed adhesions to the gallbladder and significant chronic inflammation without real significant thickening of the site. 3 right upper quadrant 5 ports were placed in the standard position. The gallbladder was grasped retracted upward and outward. Dissection was carried out in Calot?s triangle. When a critical view of the neck of the gallbladder funneling of the cystic duct with no signs of aberrant ductal structures were seen, a clip was placed on the neck of the gallbladder cystic duct junction. A partial ductotomy was made. A Cholangiocath was inserted into the duct and secured with a clip. Intraoperative cholangiogram was performed demonstrating filling of the cystic duct filling the common bile duct and likely small stone without emptying into the duodenum. initial attempts to flush out what seemed to be a very small stone were unsuccessful. The patient was given 1 mg of glucagon. Repeat attempts to flush out the stone were unsuccessful. The clip and catheter were removed. 2 clips placed on the cystic duct and the cystic duct divided. an Endoloop was placed around the cystic duct stump to give better control in the event of ERCP being necessary Dissection was continued until the cystic artery was clearly dissected and identified. The artery was then doubly clipped proximally singly clipped distally and divided. The gallbladder was then dissected free from the gallbladder fossa using electrocautery. The gallbladder was placed in an Endobag and removed through the umbilical port site. An 0 PDS atifmu-ky-whsuo suture was placed around the umbilical port site defect. Pneumoperitoneum was reestablished. The gallbladder fossa was checked for hemostasis. With good hemostasis, the area was irrigated and aspirated to clear. 5mm ports were removed under direct visualization with no signs of bleeding. Pneumoperitoneum was released. The Brito trocar was removed. The umbilical fascial suture was secured area did skin was closed with interrupted 4 -0 Monocryl subcuticular sutures. Steri-Strips and bandages were applied. The patient was brought to recovery room in stable condition.
[2018-01-18] MEDS: HYDROmorphone 0.5 MG/0.5 ML SYRINGE IV ×2 (15:28→22:39)
[2018-01-18] MEDS: HYDROcodone Bitartrate/Apap 5/325 Tablet PO ×2 (16:18→20:26)
--- NOTE | 2018-01-18 23:03 | NURSING ---
Pt was up walking in [place] with significant other. She was concerned about her abdomen being swollen. I asked her if she would like me to check it out for her. We went back to the patient's room and after looking at her abdomen I advised her that I was not concerned at all. Her abdomen was soft and the dressings were intact. Explained that d/t the procedure she was probably having some gas pressure plus pt is also on her menses. I gave her a folded blanket to use to splint her abdomen. She felt reassured and began walking in the halls again.
--- NOTE | 2018-01-19 | GALL_PTH ---
PATIENT: NEYMAR CARDENAS LOC: MS3 U#:[id number] AGE/SX: 22/F ROOM: TN320 RE01/18/[address]: Dr. Adela Kirkland MD : 1995 BED: 1 DIS: 01/19/2018 SPEC #: [id number] RECD: 01/19/18 13:22 STATUS: SCOTTIE REMckay #: [id number] TYLER: 01/19/18 00:[address]: Adela Kirkland DEPT: SURGICAL PATHOLOGY RECD BY: Kvng Cabezas ENTERED: 01/19/18 13:22 SP TYPE: LINDA COURTNEY DR: MD Ca Schneider PA Tissues: Gallbladder, NOS Procedures: Surgery Specimen Level III HEADER OPERATION: Laparoscopic, clifton with IOC PRE-OP DIAGNOSIS: Cholelithiasis, abdominal TISSUE SUBMITTED: Gallbladder MICROSCOPIC DIAGNOSIS Gallbladder: Chronic cholecystitis, cholelithiasis, and focal cholesterolosis. SJ:hedy 01/22/18 MICROSCOPIC DESCRIPTION Slides are reviewed. GROSS DESCRIPTION Received is one container labeled with the patient's name and designated gallbladder. The specimen consists of a gallbladder measuring 9 cm in length and up to 3 cm in diameter. The external surface is pink-espinoza, smooth and glistening for the most part. Focally it is granular, hemorrhagic and contains cautery artifact. The gallbladder contains green-yellow mucoid bile and multiple mulberry greenish yellow stones measuring in aggregate 4 x 2 x 0.5 cm and 0.1 to 0.4 cm in greatest dimension. The mucosa is bile-stained and without any mass lesions. The gallbladder wall measures up to 0.3 cm in thickness. Instrument Fitter sections from the gallbladder and the cystic duct are submitted in one cassette. / MO:hedy 01/19/18 TC:3 CPT: 19419
[2018-01-19 00:48] LABS: Mucous, Urine 0 SEEN /hpf (<or=2+)
[2018-01-19 01:02] LABS: Color, Urine Amber (Yellow); Glucose, Dipstick 100 mg/dl (Normal); Ketone-Dipstick Negative (Negative); Leukocyte Esterase-Dipstick 100 /ul (Negative); Nitrite-Dipstick Negative (Negative); Occult Blood-Urine 250 /ul (Negative); Protein-Dipstick 30 mg/dl (Negative); Urine Bilirubin Dipstick Negative (Negative); Urine Clarity Cloudy (Clear); Urine Urobilinogen Normal (Normal)
[2018-01-19] MEDS: HYDROcodone Bitartrate/Apap 5/325 Tablet PO ×2 (01:05→11:39)
[2018-01-19 01:08] LABS: Bacteria RARE /hpf (None Seen); Red Blood Cells-Urine 50-100 SEEN /hpf (0-5); Squamous Epithelial Cells - UA 0-5 SEEN /hpf (5-10); White Blood Cells 5-10 SEEN /hpf (0-5)
[2018-01-19 02:16] VITALS: BP 109/72; PULSE 60; RESP 18; TEMP 36.6; O2SAT 96
[2018-01-19] MEDS: HYDROmorphone 0.5 MG/0.5 ML SYRINGE IV ×2 (06:07→09:22)
[2018-01-19 06:16] LABS: Hemoglobin 11.1 g/dl (12.0-15.0); Mean Corp Hgb Conc 33.6 g/gl (32-36); Mean Corpuscular Hgb 28.7 pg (27.0-32.0); Mean Corpuscular Volume 85.3 fL (81-99); Platelet Count 196 K/mm3 (150-450); RBC Distribution Width CV 14.4 % (11.6-14.6); RBC Distribution Width SD 45.1 fl (35.1-43.9); Red Blood Count 3.87 M/mm3 (4.2-5.4); White Blood Count 10.3 K/mm3 (4.4-11.0)
[2018-01-19 06:17] LABS: Scan Indicated on CBC? Y/N NO
[2018-01-19 06:37] LABS: ALB/GLOB Ratio 1.1 RATIO (0.9-2.4); AST(SGOT) 184 U/L (15-37); Alanine Aminotransfer ALT/SGPT 559 U/L (13-56); Albumin, Serum 2.9 g/dL (3.2-5.0); Alkaline Phosphatase 211 U/L (45-117); Anion Gap 7 (5-15); BUN 6 mg/dL (7-18); BUN/Creat Ratio 11.1 RATIO (10-20); Calcium,Total 8.3 mg/dL (8.5-10.1); Chloride 106 mmol/L (98-107); Creatinine, Serum 0.54 mg/dL (0.55-1.02); EST Glomerular Filtration Rate 146 mL/min (>60); Est Glom Filt Rate - Afr Amer 176 mL/min (>60); Estimated Creatinine Clearance 132.89 ml/min; Globulin 2.6 g/dL (2.2-4.2); Glucose 81 mg/dL (74-106); Potassium 3.7 mmol/L (3.5-5.1); Protein, Total 5.5 g/dL (6.4-8.2); Sodium Level 141 mmol/L (136-145)
[2018-01-19 06:38] LABS: Lipase 54 U/L (73-393)
--- NOTE | 2018-01-19 07:24 | NM_ITS ---
CLINICAL: 22-year-old female with history of recent cholecystectomy with postoperative pain and suspected bile leak. RADIONUCLIDE HEPATOBILIARY SCINTIGRAPHY COMPARISON: None available FINDINGS: Following the intravenous administration of 4.8 mCi of 99m Tc Mebrofenin, hepatobiliary images reveal: 1. Relatively prompt and homogeneous radiopharmaceutical concentration is noted by a normal sized liver. No parenchymal defects are identified. 2. Gallbladder activity is not identified during 60 minutes of sequential imaging commensurate with known history of prior cholecystectomy. Prominent uptake noted in the right upper abdomen changing in spatial distribution is most consistent with visualization of common bile duct radiopharmaceutical activity. 3. Small intestinal tract is observed at approximately 21 minutes post radiopharmaceutical administration. 4. Washout of the radiopharmaceutical by the hepatic parenchyma appears qualitatively normal. 5. There is no evidence of a visualized bile leak identified during 60 minutes of sequential imaging. NM/Hepatobilliary Imaging IMPRESSION: 1. Nonvisualization of the gallbladder is consistent with prior cholecystectomy. 2. There is no scintigraphic evidence of bile leak on the current examination. Electronically Signed: Rod Stanley DO at 10:37 EDT Tel , Service support ,
--- NOTE | 2018-01-19 07:47 | PCM.PN.SRG ---
Subjective: Patient reports she is not having much abdominal pain today. She has no nausea or vomiting. She says she is having some tenderness when she tries to sit up. - Physical Exam General: Alert, Oriented x3, Cooperative Neck: No JVD Lungs: Normal air movement Cardiovascular: Regular rate, Regular Rhythm Abdomen: Soft, Non-Distended, Tender - Appropriate tenderness in the right upper quadrant and umbilical areas. No guarding or rebound. Vital Signs Temp Pulse Resp BP Pulse Ox 97.8 F 60 18 109/72 96 01/19/18 02:16 01/19/18 02:16 01/19/18 02:16 01/19/18 02:16 01/19/18 02:16 Oxygen Delivery Method Room Air Weight: 126 lb 8.725 oz Body Mass Index (BMI) 22.4 Intake and Output for Last 24 Hours 01/17/18 01/18/18 01/19/18 23:59 23:59 23:59 Intake Total 3357 / 3357 561 / 561 Balance 3357 / 3357 561 / 561 Laboratory Tests Past 24 Hrs 01/19/18 01/19/18 01/19/18 00:40 05:50 05:50 WBC 10.3 RBC 3.87 L Hgb 11.1 L Hct 33.0 L MCV 85.3 MCH 28.7 MCHC 33.6 RDW 14.4 RDW Differential 45.1 H Plt Count 196 MPV 10.0 Sodium 141 Potassium 3.7 Chloride 106 Carbon Dioxide 28.0 Anion Gap 7 BUN 6 L Creatinine 0.54 L Estim Creat Clear Calc 132.89 Est GFR (MDRD) Af Amer 176 Est GFR (MDRD) Non-Af 146 BUN/Creatinine Ratio 11.1 Glucose 81 Calcium 8.3 L Total Bilirubin 0.80 AST 184 H ALT 559 H Alkaline Phosphatase 211 H Total Protein 5.5 L Albumin 2.9 L Globulin 2.6 Albumin/Globulin Ratio 1.1 Lipase Urine Color Nata Urine Clarity Cloudy Urine pH 7.0 Ur Specific [place] 1.010 Urine Protein 30 H Urine Glucose (UA) 100 H Urine Ketones Negative Urine Occult Blood 250 H Urine Nitrite Negative Urine Bilirubin Negative Urine Urobilinogen Normal Ur Leukocyte Esterase 100 H Urine RBC 50-100 SEEN Urine WBC 5-10 SEEN Ur Squamous Epith Cells 0-5 SEEN Urine Bacteria RARE Urine Mucus 0 SEEN 01/19/18 05:50 WBC RBC Hgb Hct MCV MCH MCHC RDW RDW Differential Plt Count MPV Sodium Potassium Chloride Carbon Dioxide Anion Gap BUN Creatinine Estim Creat Clear Calc Est GFR (MDRD) Af Amer Est GFR (MDRD) Non-Af BUN/Creatinine Ratio Glucose Calcium Total Bilirubin AST ALT Alkaline Phosphatase Total Protein Albumin Globulin Albumin/Globulin Ratio Lipase 54 L Urine Color Urine Clarity Urine pH Ur Specific [place] Urine Protein Urine Glucose (UA) Urine Ketones Urine Occult Blood Urine Nitrite Urine Bilirubin Urine Urobilinogen Ur Leukocyte Esterase Urine RBC Urine WBC Ur Squamous Epith Cells Urine Bacteria Urine Mucus Clinical Impression(s) from Imaging Studies Cholangiogram,Operative 01/18/18 11:50 IMPRESSION: Mild dilatation of the intra and extra hepatic biliary ducts with no flow into the duodenum. Retained stone in the distal common bile duct should be ruled out. Electronically Signed: Amor Cruz MD at 14:33 EDT Tel [phone], Service support , Medical Necessity - Tobacco Use Smoking Status: Current every day smoker Assessment/Plan All Active Problems Drug abuse (Acute) Pancreatitis (Acute) premature rupture of membranes (PPROM) delivered, current hospitalization (Acute) 22-year-old female with choledocholithiasis 1. Patient had laparoscopic cholecystectomy yesterday and intraoperative cholangiogram showed an obstruction of the distal common bile duct likely stone. This morning the patient's LFTs have decreased. She is not having much right upper quadrant pain. 2. After discussing ERCP with the patient the patient did not want the procedure unless absolutely necessary as she believes the risk I told her that with her LFTs improving I was unable to say that this was absolutely warranted. At this time she is refusing the procedure and I discussed this with Dr. Velasco and he ordered a HIDA test. If the HIDA shows no filling of the duodenum I would be more comfortable telling her that this was absolutely necessary and she would consent. 3. I discussed the risks of ERCP with the patient including but not limited to bleeding, infection, perforation of the bile duct or bowels, pancreatitis. The patient is also concerned that she lost a tooth with anesthesia yesterday and I did tell her that this was a risk for ERCP as well as we use a bite block. The patient will decide on the procedure after the results of the HIDA are back. Lion Hernandez MD Pager: [facility] [address] [place] [address], [address] [place] [address] Office:
--- NOTE | 2018-01-19 07:50 | PN.SURG_ITS ---
Subjective: Patient reports she is not having much abdominal pain today. She has no nausea or vomiting. She says she is having some tenderness when she tries to sit up. - Physical Exam General: Alert, Oriented x3, Cooperative Neck: No JVD Lungs: Normal air movement Cardiovascular: Regular rate, Regular Rhythm Abdomen: Soft, Non-Distended, Tender - Appropriate tenderness in the right upper quadrant and umbilical areas. No guarding or rebound. Vital Signs Temp Pulse Resp BP Pulse Ox 97.8 F 60 18 109/72 96 01/19/18 02:16 01/19/18 02:16 01/19/18 02:16 01/19/18 02:16 01/19/18 02:16 Oxygen Delivery Method Room Air Weight: 126 lb 8.725 oz Body Mass Index (BMI) 22.4 Intake and Output for Last 24 Hours 01/17/18 01/18/18 01/19/18 23:59 23:59 23:59 Intake Total 3357 / 3357 561 / 561 Balance 3357 / 3357 561 / 561 Laboratory Tests Past 24 Hrs 01/19/18 01/19/18 01/19/18 00:40 05:50 05:50 WBC 10.3 RBC 3.87 L Hgb 11.1 L Hct 33.0 L MCV 85.3 MCH 28.7 MCHC 33.6 RDW 14.4 RDW Differential 45.1 H Plt Count 196 MPV 10.0 Sodium 141 Potassium 3.7 Chloride 106 Carbon Dioxide 28.0 Anion Gap 7 BUN 6 L Creatinine 0.54 L Estim Creat Clear Calc 132.89 Est GFR (MDRD) Af Amer 176 Est GFR (MDRD) Non-Af 146 BUN/Creatinine Ratio 11.1 Glucose 81 Calcium 8.3 L Total Bilirubin 0.80 AST 184 H ALT 559 H Alkaline Phosphatase 211 H Total Protein 5.5 L Albumin 2.9 L Globulin 2.6 Albumin/Globulin Ratio 1.1 Lipase Urine Color [place] Urine Clarity Cloudy Urine pH 7.0 Ur Specific [place] 1.010 Urine Protein 30 H Urine Glucose (UA) 100 H Urine Ketones Negative Urine Occult Blood 250 H Urine Nitrite Negative Urine Bilirubin Negative Urine Urobilinogen Normal Ur Leukocyte Esterase 100 H Urine RBC 50-100 SEEN Urine WBC 5-10 SEEN Ur Squamous Epith Cells 0-5 SEEN Urine Bacteria RARE Urine Mucus 0 SEEN 01/19/18 05:50 WBC RBC Hgb Hct MCV MCH MCHC RDW RDW Differential Plt Count MPV Sodium Potassium Chloride Carbon Dioxide Anion Gap BUN Creatinine Estim Creat Clear Calc Est GFR (MDRD) Af Amer Est GFR (MDRD) Non-Af BUN/Creatinine Ratio Glucose Calcium Total Bilirubin AST ALT Alkaline Phosphatase Total Protein Albumin Globulin Albumin/Globulin Ratio Lipase 54 L Urine Color Urine Clarity Urine pH Ur Specific [place] Urine Protein Urine Glucose (UA) Urine Ketones Urine Occult Blood Urine Nitrite Urine Bilirubin Urine Urobilinogen Ur Leukocyte Esterase Urine RBC Urine WBC Ur Squamous Epith Cells Urine Bacteria Urine Mucus Clinical Impression(s) from Imaging Studies Cholangiogram,Operative 01/18/18 11:50 IMPRESSION: Mild dilatation of the intra and extra hepatic biliary ducts with no flow into the duodenum. Retained stone in the distal common bile duct should be ruled out. Electronically Signed: Amor Cruz MD at 14:33 EDT Tel [phone], Service support , Medical Necessity - Tobacco Use Smoking Status: Current every day smoker Assessment/Plan All Active Problems Drug abuse (Acute) Pancreatitis (Acute) premature rupture of membranes (PPROM) delivered, current hospitalization (Acute) 22-year-old female with choledocholithiasis 1. Patient had laparoscopic cholecystectomy yesterday and intraoperative cholangiogram showed an obstruction of the distal common bile duct likely stone. This morning the patient's LFTs have decreased. She is not having much right upper quadrant pain. 2. After discussing ERCP with the patient the patient did not want the procedure unless absolutely necessary as she believes the risk I told her that with her LFTs improving I was unable to say that this was absolutely warranted. At this time she is refusing the procedure and I discussed this with Dr. Velasco and he ordered a HIDA test. If the HIDA shows no filling of the duodenum I would be more comfortable telling her that this was absolutely necessary and she would consent. 3. I discussed the risks of ERCP with the patient including but not limited to bleeding, infection, perforation of the bile duct or bowels, pancreatitis. The patient is also concerned that she lost a tooth with anesthesia yesterday and I did tell her that this was a risk for ERCP as well as we use a bite block. The patient will decide on the procedure after the results of the HIDA are back. Lion Hernandez MD Pager: [facility] [address] [place] [address], [address] [place] [address] Office:
--- NOTE | 2018-01-19 08:55 | PCM.PN.SRG ---
Subjective: still RLQ pain. like pre op - Physical Exam General: Alert, Oriented x3 Lungs: Clear to auscultation, Normal air movement Cardiovascular: Regular rate, Regular Rhythm Abdomen: Bowel Sounds Present, Soft, Tender - RUQ Vital Signs Temp Pulse Resp BP Pulse Ox 97.8 F 60 18 109/72 96 01/19/18 02:16 01/19/18 02:16 01/19/18 02:16 01/19/18 02:16 01/19/18 02:16 Oxygen Delivery Method Room Air Weight: 57.4 kg Body Mass Index (BMI) 22.4 Intake and Output for Last 24 Hours 01/17/18 01/18/18 01/19/18 23:59 23:59 23:59 Intake Total 3357 / 3357 561 / 561 Balance 3357 / 3357 561 / 561 Laboratory Tests Past 24 Hrs 01/19/18 01/19/18 01/19/18 00:40 05:50 05:50 WBC 10.3 RBC 3.87 L Hgb 11.1 L Hct 33.0 L MCV 85.3 MCH 28.7 MCHC 33.6 RDW 14.4 RDW Differential 45.1 H Plt Count 196 MPV 10.0 Sodium 141 Potassium 3.7 Chloride 106 Carbon Dioxide 28.0 Anion Gap 7 BUN 6 L Creatinine 0.54 L Estim Creat Clear Calc 132.89 Est GFR (MDRD) Af Amer 176 Est GFR (MDRD) Non-Af 146 BUN/Creatinine Ratio 11.1 Glucose 81 Calcium 8.3 L Total Bilirubin 0.80 AST 184 H ALT 559 H Alkaline Phosphatase 211 H Total Protein 5.5 L Albumin 2.9 L Globulin 2.6 Albumin/Globulin Ratio 1.1 Lipase Urine Color [place] Urine Clarity Cloudy Urine pH 7.0 Ur Specific [place] 1.010 Urine Protein 30 H Urine Glucose (UA) 100 H Urine Ketones Negative Urine Occult Blood 250 H Urine Nitrite Negative Urine Bilirubin Negative Urine Urobilinogen Normal Ur Leukocyte Esterase 100 H Urine RBC 50-100 SEEN Urine WBC 5-10 SEEN Ur Squamous Epith Cells 0-5 SEEN Urine Bacteria RARE Urine Mucus 0 SEEN 01/19/18 05:50 WBC RBC Hgb Hct MCV MCH MCHC RDW RDW Differential Plt Count MPV Sodium Potassium Chloride Carbon Dioxide Anion Gap BUN Creatinine Estim Creat Clear Calc Est GFR (MDRD) Af Amer Est GFR (MDRD) Non-Af BUN/Creatinine Ratio Glucose Calcium Total Bilirubin AST ALT Alkaline Phosphatase Total Protein Albumin Globulin Albumin/Globulin Ratio Lipase 54 L Urine Color Urine Clarity Urine pH Ur Specific [place] Urine Protein Urine Glucose (UA) Urine Ketones Urine Occult Blood Urine Nitrite Urine Bilirubin Urine Urobilinogen Ur Leukocyte Esterase Urine RBC Urine WBC Ur Squamous Epith Cells Urine Bacteria Urine Mucus Medical Necessity - Tobacco Use Smoking Status: Current every day smoker Assessment/Plan All Active Problems Drug abuse (Acute) Pancreatitis (Acute) premature rupture of membranes (PPROM) delivered, current hospitalization (Acute) POFD # 1 a/ p laparoscopic cholecystectomy with intraoperative cholangiogram - distal CBD obstruction with stone, unable to flush with fluid pressure and glucogon. LFT's improved this am, but patient with same pain. recommedned ERCP. patient declined. will order FLACO moctezuma to assess for obstruction. consider repeat labs in am.
[2018-01-19] MEDS: 0.9% NaCl Peripheral Flush Adult/Peds IV (09:22)
[2018-01-19 09:32] VITALS: BP 114/85; PULSE 71; RESP 20; TEMP 37.1; O2SAT 98
--- NOTE | 2018-01-19 09:38 | PCM.DC.GB ---
Discharge Diet: Light diet - advance as tolerated Discharge Activity: May Not Drive - for 2-3 days or while taking narcotic pain medications., - - Do not drive, work heavy equipment or sign legal documents for 24 hours. May shower in (days): 1 - with the bandage in place. Additional Activity Instructions:: Pain medication may cause nausea. You should typically eat light foods as you take your pain medications. Pain medication may also cause constipation. If this is a problem for you, please discuss with your doctor. Call your doctor if your incision/area has: Continuous Slow Oozing, Sudden Increased Bleeding, Increased Pain/ Swelling, Increased Redness, Foul Smelling Discharge Call your doctor if you observe: Fever of 101 or Higher Suture Line Care: Avoid Pulling/Pushing, Avoid Pinching/Bending Additional Dressing/Incision Instructions:: Leave operative bandaids on for 2 days. When you remove dressing, leave Steri-Strips on until your follow-up appointment, or until the Steri-Strips fall off on their own. Allergies/Adverse Reactions: Allergies No Known Allergies Allergy (Verified 01/17/18 21:05) Medications to take at Discharge NK [NK] 01/17/18 Primary Care Physician: Ca Browning PA [Primary Care Provider] - Please Follow Up With: Rod Velasco MD - Please call [phone] to schedule an appointment. When: 7 days after your surgery
== END 2018-01-19 12:25 | disposition home or self-care (01) ==
LOC: ED 21:38 → MS3 01-18 00:25
PROVIDERS: Surgery; Admitting Provider Surgery; Emergency Provider Emergency Medicine; Family Provider Physician Assistant; PCP Physician Assistant; Visit Provider Surgery
PROC: (CPT 47610; principal; 2018-01-18 07:10)
DX: K80.10 Calculus of gallbladder with chronic cholecystitis without obstruction (principal); F17.200 Nicotine dependence, unspecified, uncomplicated; K85.10 Biliary acute pancreatitis without necrosis or infection
CPT/HCPCS: 47563; 36415; 74300; 74301; 76000; 76705; 78226; 80048; 80053; 80076; 81001; 83690; 84703; 85025; 85027; 88304; 93005; 96361; 96374; 96375; 96376; 99218; 99281; 99406; A9537; J7030; J7120; A4216; G0378; J2405